=== PATIENT | female | born 1975 | race Caucasian/White ===

== ENCOUNTER → 2016-07-19 16:51 | Outpatient (CLI) | payer MEDICAID ==
[2014-10-24 05:54] VITALS: BMI 50.4
[~2016-07-19 16:51] MED LIST: SYNTHROID100 MCG PO; XANAX0.25 MG PO
== END | disposition home or self-care (01) ==
LOC: D.MAMMO 09:30
DX: N64.4 Mastodynia (principal)

== ENCOUNTER 2016-07-27 07:12 | Emergency (ER) | payer MEDICAID ==
[2014-10-24 05:54] VITALS: BMI 50.4
== END 2016-07-27 08:01 | disposition home or self-care (01) ==
LOC: D.ER 07:12
DX: K59.00 Constipation, unspecified (principal); E03.9 Hypothyroidism, unspecified; F17.200 Nicotine dependence, unspecified, uncomplicated

== ENCOUNTER 2016-07-27 19:22 | Emergency (ER) | payer MEDICAID ==
[2014-10-24 05:54] VITALS: BMI 50.4
== END 2016-07-27 21:13 | disposition left against medical advice (07) ==
LOC: D.ER 19:22
DX: K59.00 Constipation, unspecified (principal)